=== PATIENT | female | born 1960 | race Caucasian/White ===

== ENCOUNTER 2021-01-01 10:22 | Emergency (ER) | payer OTHER ==
[~2021-01-01] VITALS: Ht 177.8 cm; Wt 85.0 kg
[2021-01-01 10:38] VITALS: BP 120/83
--- NOTE | 2021-01-01 10:48 | NUR ---
PT HAS READ FACT SHEET FOR PATIENTS FOR EMERGENCY USE AUTHORIZATION OF CASIRIVIMAB AND IMDEVIMAB FOR COVID, AGREES TO RECEIVED MEDICATION, AND HAS NO QUESTIONS
[2021-01-01] MEDS ORDERED: CASIRIVIMAB/IMDEVIMAB inject. 10 ML in normal saline 100ml IV soln 100 ML IV ONE (10:50)
[2021-01-01] MEDS ORDERED: ALBU6.7H9 INH (12:13)
== END 2021-01-01 12:38 | disposition home or self-care (01) ==
LOC: ER 10:23
DX: U07.1 COVID-19 (principal); R51.9 Headache, unspecified; R53.83 Other fatigue; R05 Cough; R06.02 Shortness of breath; R19.7 Diarrhea, unspecified; G89.29 Other chronic pain; Z88.1 Allergy status to other antibiotic agents; Z79.899 Other long term (current) drug therapy
CPT/HCPCS: 71045; 99283